=== PATIENT | female | born 2000 | race Two or more races ===

== ENCOUNTER 2022-10-30 09:03 | Inpatient (IN) ==
[2022-10-30] MEDS ORDERED: D5 1/2 NS 1,000 ML 1,000 ML IV ONE (09:18)
[2022-10-30 09:27] LABS: BILIRUBIN,URINE NEGATIVE (NEGATIVE); BLOOD/HEMOGLOBIN,URINE 1+ (NEGATIVE); GLUCOSE, URINE NEGATIVE (NEGATIVE); KETONES,URINE 3+ (NEGATIVE); LEUKOCYTE ESTERASE ,URINE 1+ (NEGATIVE); NITRITES,URINE NEGATIVE (NEGATIVE); PROTEIN,URINE 1+ (NEGATIVE); UROBILINOGEN,URINE NORMAL (NORMAL)
[2022-10-30 09:39] LABS: APPEARANCE,URINE HAZY (CLEAR); BACTERIA,URINE 1+ /HPF (NEGATIVE); COLOR,URINE YELLOW (YELLOW); SQUAMOUS EPITHELIAL CELL,UR MODERATE /HPF (NEGATIVE)
[2022-10-30 09:40] LABS: AMNISURE ROM TEST NO MEMBRANES RUPTURE (NO RUPTURE); RENAL EPITHELIAL CELLS,URINE RARE /HPF (NEGATIVE)
[2022-10-30 09:54] LABS: HEMOGLOBIN 11.9 g/dL (12.0-16.0); MONOCYTES # (AUTO) 0.4 x10^3/uL (0.3-0.8); RED CELL DISTRIBUTION WIDTH 16.1 % (11.6-16.5); WHITE BLOOD COUNT 7.3 X10^3/uL (3.6-10.0)
[2022-10-30 09:57] LABS: BASOPHILS % (AUTO) 0.7 % (0.2-1.0); EOSINOPHILS % (AUTO) 0.3 % (0.9-2.9); LYMPHOCYTES # (AUTO) 1.7 X10^3/uL (1.3-2.9); MEAN CORPUSCULAR HEMOGLOBIN 26.5 pg (27.0-34.0); MEAN CORPUSCULAR HGB CONC 33.1 g/dL (33.0-35.0); MEAN CORPUSCULAR VOLUME 80.2 fL (80.0-100.0); MEAN PLATELET VOLUME 9.2 fL (7.4-11.0); MONOCYTES % (AUTO) 5.7 % (0.0-13.0); NEUTROPHILS # (AUTO) 5.1 x10^3/uL (2.2-4.8); NEUTROPHILS % (AUTO) 69.3 % (42.0-75.0); PLATELET COUNT 224 X10^3/uL (150.0-450.0); RED BLOOD COUNT 4.49 X10^6/uL (3.5-5.4)
[2022-10-30] MEDS ORDERED: D5 1/2 NS 1,000 ML 1,000 ML IV SCH ×2 (10:00→11:00)
[2022-10-30 10:04] LABS: ALANINE AMINOTRANSFERASE 16 Units/L (12-78); ALKALINE PHOSPHATASE 218 Units/L (46-116); ASPARTATE AMINO TRANSFERASE 17 Units/L (15-37); BLOOD UREA NITROGEN 7 mg/dL (7-18); CALCIUM 8.3 mg/dL (8.5-10.1); CARBON DIOXIDE 23.7 mmol/L (21-32); CHLORIDE 103 mmol/L (98-107); COR CA(FOR HYPOALB) 9.1 mg/dL (8.5-10.1); CREATININE 0.48 mg/dL (0.55-1.02); GLUCOSE 75 mg/dL (65-99); POTASSIUM 3.8 mmol/L (3.5-5.1); SODIUM 136 mmol/L (136-145); TOTAL PROTEIN 6.6 g/dL (6.4-8.2); eGFR NON BLACK RACES > 60 (>60)
[2022-10-30 10:22] LABS: AMNISURE ROM TEST NO MEMBRANES RUPTURE (NO RUPTURE)
[2022-10-30] MEDS ORDERED: PITOCIN IVP ONE (10:42)
[2022-10-30] MEDS ORDERED: ZOFRAN INJ 4 MG VIAL IVP PRN (10:42)
[2022-10-30] MEDS ORDERED: STADOL INJ IVP PRN (10:42)
[2022-10-30] MEDS ORDERED: FENTANYL VIAL INJ 100 mcg ONE ×2 (10:52→11:23)
[2022-10-30] MEDS ORDERED: NAROPIN EPIDURAL 0.2% 100 ML ONE (10:53)
[2022-10-30] MEDS ORDERED: LR 1,000 ML IV 1,000 ML IV ONE (10:53)
[2022-10-30] MEDS ORDERED: D5 LR + PITOCIN 10 UNITS/L 10 UNITS/1,000 ML BAG IV ONE (10:54)
[2022-10-30] MEDS ORDERED: D5 1/2 NS 1,000 mL + PITOCIN 20 UNITS/L IV 20 UNITS/1,000 ML BAG IV ONE (10:54)
[2022-10-30] MEDS ORDERED: AMPICILLIN VIAL 2 GRAM ONE (10:57)
[2022-10-30] MEDS ORDERED: NS 100 ML IV 100 ML ONE ×2 (10:57→17:15)
[2022-10-30] MEDS ORDERED: AMPICILLIN VIAL 2 GRAM 2 G in NS 100 ML IV + SPIKE MINIBAG* 100 ML IV SCH (11:00)
[2022-10-30] MEDS ORDERED: D5 LR + PITOCIN 10 UNITS/L 10 UNITS/1,000 ML BAG IV PRN (11:45)
[2022-10-30] MEDS ORDERED: MARCAINE 0.25% INJ ONE (14:46)
[2022-10-30] MEDS ORDERED: ADRENALINE CHL INJ ONE (14:46)
[2022-10-30] MEDS ORDERED: AMPICILLIN VIAL 1 GRAM 1 G in NS 50 ML IV + SPIKE MINIBAG* 50 ML IV SCH (16:00)
[2022-10-30] MEDS ORDERED: AMPICILLIN VIAL 1 GRAM ONE (17:15)
[2022-10-30] MEDS ORDERED: AMBIEN PO PRN (19:05)
[2022-10-30] MEDS ORDERED: MILK OF MAGNESIA PO PRN (19:05)
[2022-10-30] MEDS ORDERED: DERMOPLAST PAIN RELIEF SPRAY TOP PRN (19:05)
[2022-10-30] MEDS: MOTRIN TAB 800 MG PO PRN (22:31)
[2022-10-31] MEDS: D5 1/2 NS 1,000 ML 1,000 ML with PITOCIN 20 UNITS IV SCH ×6 (02:16→08:45)
[2022-10-31 05:12] LABS: HEMATOCRIT 28.4 % (36.0-47.0)
[2022-10-31 05:20] LABS: HEMOGLOBIN 9.8 g/dL (12.0-16.0)
[2022-10-31] MEDS: PRENATAL PLUS PO SCH (08:14)
[2022-10-31] MEDS: MOTRIN TAB 800 MG PO PRN (08:14)
[2022-10-31] MEDS ORDERED: NS 100 ML IV 100 ML with VENOFER 400 MG IV NR ×2 (09:49)
[2022-11-01] MEDS: PRENATAL PLUS PO SCH (08:00)
[2022-11-01 20:53] LABS: SICKLE CELL SOLUBILITY Not Performed
[2022-11-02 00:18] VITALS: O2SAT 98
[2022-11-02] MEDS: PRENATAL PLUS PO SCH (08:15)
[2022-11-02 09:07] VITALS: BP 123/65; PULSE 88; TEMP 97.5
== END 2022-11-02 11:08 | disposition home or self-care (01) | DRG 807 ==
LOC: ER 09:03 → LD 10:15 → MED/SURG 19:07
PROVIDERS: ADMIT Obstetrics & Gynecology Obstetrics; ATTEND Obstetrics & Gynecology Obstetrics
DX: O26.893 Other specified pregnancy related conditions, third trimester; O70.0 First degree perineal laceration during delivery; Z37.0 Single live birth; Z3A.41 41 weeks gestation of pregnancy; O99.02 Anemia complicating childbirth; D64.89 Other specified anemias